=== PATIENT | female | born 1955 | race Hispanic/Latino ===

== ENCOUNTER → 2024-09-12 | Outpatient (CLI) | payer OTHER, MEDICARE ==
--- NOTE | 2024-09-14 08:39 | HMCSR ---
APPROVED REPORT Laterality: Bilateral Indications PVD VELOCITY AND DOPPLER WAVEFORM ANALYSIS AMBULANCE PARAMEDIC (R) 98.4cm/sec, Triphasic, AMBULANCE PARAMEDIC (L) 114.6cm/sec, Triphasic, Prof Fem Art. (R) 63.7cm/sec, Triphasic, Prof Fem Art. (L) 60.6cm/sec, Biphasic, Fem Art Prox. (R) 91.5cm/sec, Triphasic, Fem Art Prox. (L) 68.2cm/sec, Biphasic, Fem Art Mid. (R) 111.8cm/sec, Triphasic, Fem Art Mid. (L) 84.8cm/sec, Biphasic, Fem Art Dist (R) 92.6cm/sec, Triphasic, Fem Art Dist. (L) 72.6cm/sec, Biphasic, Pop Art(AK) (R) 83.4cm/sec, Triphasic, Pop Art (AK) (L) 68.5cm/sec, Biphasic, Pop Art (Fossa)(R) 54.4cm/sec, Triphasic, Pop Art (Fossa) (L) 70.0cm/sec, Biphasic, Pop Art(BK) (R) 96.0cm/sec, Triphasic, Pop Art (BK) (L) 86.1cm/sec, Biphasic, SOCIAL WORKER PALLIATIVE CARE Prox. (R) 83.2cm/sec, Triphasic, SOCIAL WORKER PALLIATIVE CARE Prox. (L) 50.4cm/sec, Biphasic, SOCIAL WORKER PALLIATIVE CARE Mid. (R) 64.4cm/sec, Triphasic, SOCIAL WORKER PALLIATIVE CARE Mid. (L) 45.3cm/sec, Biphasic, SOCIAL WORKER PALLIATIVE CARE Dist. (R) 79.1cm/sec, Triphasic, SOCIAL WORKER PALLIATIVE CARE Dist. (L) 34.3cm/sec, Biphasic, Per Art Prox. (R) 57.9cm/sec, Triphasic, Per Art Prox. (L) 62.8cm/sec, Biphasic, Per Art Mid. (R) 58.7cm/sec, Triphasic, Per Art Mid. (L) 41.2cm/sec, Biphasic, Per Art Dist. (R) 58.7cm/sec, Triphasic, Per Art Dist. (L) 29.3cm/sec, Biphasic, MELIDA Prox. (R) 122.9cm/sec, Triphasic, MELIDA Prox. (L) 78.1cm/sec, Biphasic, MELIDA Mid. (R) 80.7cm/sec, Monophasic MELIDA Mid. (L) 70.0cm/sec, Biphasic, MELIDA Dist. (R) 79.0cm/sec, Monophasic, MELIDA Dist. (L) 70.9cm/sec, Biphasic, Technologist Impression No evidence of significant arterial insufficiency of bilateral lower extremities. Multiphasic waveforms seen bilaterally. Conclusion No evidence of significant arterial insufficiency of bilateral lower extremities. Conclusion No evidence of significant arterial insufficiency of bilateral lower extremities.
== END | disposition home or self-care (01) ==
LOC: SHCH 09:28
PROVIDERS: ATTEND Internal Medicine Cardiovascular Disease
DX: I73.9 Peripheral vascular disease, unspecified (principal)
CPT/HCPCS: 93925